=== PATIENT | female | born 1990 | race Caucasian/White ===

== ENCOUNTER 2022-08-27 10:12 | Day surgery (SDC) | payer OTHER, SELFPAY ==
[2022-08-27] VITALS (8 sets, daily range): BP systolic 103–111; BP diastolic 65–74; PULSE 81–89; RESP 16; TEMP 36.8–36.9; O2SAT 95–96; BMI 50.5
--- NOTE | ~2022-08-27 | FL_ITS ---
EXAMINATION: FLUOROSCOPY-GUIDED LUMBAR PUNCTURE CLINICAL INFORMATION: Migraine without aura. Obesity. COMPARISON: None TECHNIQUE: Following explaining fluoroscopy-guided lumbar puncture procedure, benefits and risk, a written consent was obtained. Patient was placed prone and low back area was cleaned and draped in usual sterile manner. 1% lidocaine was inserted at the skin of the left para midline region overlying the L3-L4 disc level. A 20-gauge 6-inch long needle was then inserted from the skin intrathecally. After observing CSF return following removal of stylet, patient was quickly placed in left lateral decubitus view and opening CSF pressure was obtained. Subsequently CSF was collected in 4 test tubes and sent to lab. The stylet was reintroduced and needle withdrawn. Complete hemostasis achieved at puncture site. Sterile dressing applied postprocedure. Patient tolerated procedure extremely well. FINDINGS: The vertebral heights and alignment is maintained normal. The needle is positioned at the L3-L4 disc level. Opening CSF pressure measured 14.5 cm of water. Approximately 10 mL of clear CSF fluid was collected in 4 test tubes and sent to lab. FLUOROSCOPY TIME: 0.3 minutes. DOSE AREA PRODUCT: 7.787 uGy-m2 (microgray-meter squared). FL/FL guided lumbar puncture LP IMPRESSION: Successful fluoroscopy-guided lumbar puncture performed without immediate complications.
[2022-08-27 10:57] LABS: MANUAL DIFF FLAG NO
[2022-08-27 10:58] LABS: Basophils Percent Auto 0.4 % (0-2); Eosinophils Absolute Auto 0.2 X10*3/uL (0.0-0.4); Eosinophils Percent Auto 1.8 % (0-4); Hematocrit 43.5 % (37.0-47.0); Hemoglobin 14.5 g/dl (12.0-16.0); Imm Gran Abs Auto 0.03 X10*3/uL (0.00-0.03); Imm Gran Pct Auto 0.3 % (0.0-0.4); Lymphocytes Absolute Auto 2.6 X10*3/uL (1.2-4.9); Lymphocytes Percent Auto 28.8 % (20-40); Mean Corpuscular HGB Conc 33.3 g/dl (31.0-35.0); Mean Corpuscular Hemoglobin 29.1 pg (27.0-33.0); Mean Corpuscular Volume 87.2 fL (80.0-98.0); Monocytes Absolute Auto 0.6 X10*3/uL (0.1-1.2); Monocytes Percent Auto 6.9 % (2-11); Neutrophils Absolute Auto 5.6 x10*3/uL (2.0-8.3); Neutrophils Percent Auto 61.8 % (45-73); Platelet Count 209 X10*3/uL (160-400); Red Blood Count 4.99 X10*6/uL (4.20-5.50); Red Cell Distribution Width 13.3 % (11.0-16.0); White Blood Count 9.1 X10*3/uL (4.8-10.8)
[2022-08-27 11:09] LABS: Prothrombin Time 11.6 SEC (10.0-13.1)
[2022-08-27 11:12] LABS: Partial Thromboplastin Time 36.8 SEC (26.0-36.4)
[2022-08-27 11:31] LABS: UPreg QC Valid YES; Urine Pregnancy NEGATIVE (NEGATIVE)
[2022-08-27 13:18] LABS: Glucose CSF 61 mg/dL; Total Protein CSF 24.5 mg/dL (15-45)
[2022-08-27 13:38] LABS: CSF Appearance Clear, Colorless; CSF Tube # 3
[2022-08-27 14:46] LABS: Appearance CSF CLEAR; CSF Tube # 4; Color CSF COLORLESS; Lymphocytes CSF 100 %; Red Blood Cell CSF 5 MM*3; White Blood Cell CSF 2 MM*3
== END 2022-08-27 15:34 | disposition home or self-care (01) ==
PROVIDERS: Nurse Practitioner Family; Visit Provider Radiology Diagnostic Radiology
PROC: 009U3ZZ Drainage of Spinal Canal, Percutaneous Approach (ICD-10-PCS; CPT 62270; principal; 2022-08-27 11:00)
DX: G43.009 Migraine without aura, not intractable, without status migrainosus (principal); R93.0 Abnormal findings on diagnostic imaging of skull and head, not elsewhere classified; E66.01 Morbid (severe) obesity due to excess calories; Z68.43 Body mass index [BMI] 50.0-59.9, adult; Z79.899 Other long term (current) drug therapy
CPT/HCPCS: 36415; 62328; 81025; 82945; 84157; 85025; 85610; 85730; 87015; 87070; 87205; 89051

== ENCOUNTER → 2022-12-11 09:04 | Outpatient (BNVA) | payer OTHER, SELFPAY | PROVIDERS: Visit Provider Nurse Practitioner Family ==

== ENCOUNTER 2023-02-26 09:28 | Outpatient (AMB) | payer OTHER, SELFPAY ==
--- NOTE | 2023-02-26 09:52 | MHC.OFFVIS ---
Intake Vital Signs 02/26/23 09:55 Weight 298 lb BP 126/56 L Blood Pressure Location Lt brachial Position Sitting Pulse 78 Pulse Source Pulse Oximeter Pulse Oximetry (%) 95 Oxygen Delivery Method Room Air Intake Visit Reasons: Botox-CONFIRMED Intake Note: Botox Injection Director Of Social Services Required: No Allergies No Known Allergies Allergy (Verified 02/26/23 09:53) Medication List - Last Reconciled 02/26/23 by Merna Tejeda MD escitalopram oxalate 20 mg PO DAILY indomethacin 25 mg PO TID PRN 30 days loratadine (Claritin Liqui-Gel) 10 mg PO DAILY PRN omeprazole 20 mg PO DAILY onabotulinumtoxinA (Botox) 200 units IM ONCE 12 weeks riboflavin (vitamin B2) 400 mg PO DAILY 30 days zolmitriptan take 1 tab at onset of headache; if no relief, may repeat 1 tab after at least 2 hrs; max = 2 tabs/24 hrs PO 30 days HPI HPI Comments History of Present Illness Details ? 32y/o female comes for treatment of migraines with botox.This is her first treatment and she has about 16-20 headache days a month.She takes care of her children at home and yetserday her headaches were severe that her had to leave work to care for children. ??? Most frequent reported adverse reactions following injection of botox for chronic migraine include neck pain (9%), headache(5%), eyelid ptosis(4%), migraine(4%), muscular weakness(4%), musculuskeletal stiffness(4%), bronchitis(3%), injection site pain (3%), musculoskeletal pain(3%), myalgia(3%), facial paresis(2%), HTN(2%) and muscle spasms(2%) were discussed in detail. ??? Botulinum toxin typeA 200units Lot no [id number] expiration Sep 2025 was diluted with 4 cc of normal saline . ??? Muscles injected- ??? Frontalis 4 sites ??? Procerus 1 site ??? Outside Sales Manager- 2 sites ??? Temporalis- 8 sites ??? Occipitalis- 6 sites ??? Cervical paraspinals- 4 sites ??? Trapezius- 6 sites- 10 units each ??? 5 units each in 31 site ??? Total use- 185units ??? Discarded-15units [facility] Medical History (Updated 02/26/23 @ 10:14 by Merna Tejeda MD) Chronic migraine without aura Family History Father Graves disease Mother Hypertension Alcohol abuse Cirrhosis Son ADHD Social History Alcohol intake: current Alcohol intake frequency: holidays/special occasions only Patient Tobacco Use Status: Never used Tobacco Physical Exam Const General: cooperative and no acute distress Orientation/consciousness: patient oriented x3 HEENT Head: Yes normocephalic Resp Effort & Inspection: normal respiratory effort and able to speak in complete sentences Neuro General: patient oriented x3, gait normal and CN's II-XI intact bilaterally Cognition (Neuro): normal cognition Motor exam (neuro): 5/5 motor strength present throughout Office Procedures Botulinum toxin Injection 66949 - Migraine Procedure code (CPT) selection complete Office Meds onabotulinumtoxinA Performing Provider: Merna Tejeda MD Administered by: Merna Tejeda MD on 02/26/23 10:19 Dose Route Admin Location Lot Number Expiration Date [employer] Outsole 185 unit subcut [id number] 09/05/25 9815-5536-61 ALLERGAN/BOTOX Comments: see HPI Assessment & Plan Assessment & Plan (1) Chronic migraine without aura: Code(s): G43.709 - Chronic migraine without aura, not intractable, without status migrainosus Plan Patient tolerated the procedure well she will call with any side effects Orders: Orders AMB Botulinum toxin Injection Today G43.709 - Chronic migraine without aura, not intractable, without status migrainosus Medications: Refilled zolmitriptan take 1 tab at onset of headache; if no relief, may repeat 1 tab after at least 2 hrs; max = 2 tabs/24 hrs PO 12 tabs 3RF 30 days Coding Level of Care Code Est Pt Level 1 (11842) Diagnoses Chronic migraine without aura G43.709 CPT Codes Botox Injection - Botox 3: 12249 - Migraine ([id number])
[2023-02-26 09:55] VITALS: BP 126/56; PULSE 78; O2SAT 95
== END 2023-02-26 10:11 | disposition home or self-care (01) ==
PROVIDERS: Visit Provider Psychiatry & Neurology Neurology
DX: G43.709 Chronic migraine without aura, not intractable, without status migrainosus (principal)
CPT/HCPCS: 64615; 99211

== ENCOUNTER → 2023-02-26 09:28 | Outpatient (BNVA) | payer OTHER, SELFPAY | PROVIDERS: Visit Provider Psychiatry & Neurology Neurology | DX: G43.709 Chronic migraine without aura, not intractable, without status migrainosus (principal) | CPT/HCPCS: 64615; J0585 ==

== ENCOUNTER 2023-05-29 09:32 | Outpatient (AMB) | payer OTHER, SELFPAY ==
[2023-05-29 09:30] VITALS: BP 126/80; PULSE 93; RESP 17; O2SAT 96; BMI 53.7
--- NOTE | 2023-05-29 09:30 | MHC.OFFVIS ---
Intake Vital Signs 05/29/23 09:30 Height 5 ft 3 in Weight 303 lb 6 oz BMI 53.7 BP 126/80 Blood Pressure Location Lt brachial Position Sitting Respiration 17 Pulse 93 Pulse Source Pulse Oximeter Pulse Oximetry (%) 96 Oxygen Delivery Method Room Air Intake Visit Reasons: Botox-confirmed Intake Note: Pt presents to office for Botox injections. Allergies No Known Allergies Allergy (Verified 05/29/23 09:30) Medication List - Last Reconciled 05/29/23 by Merna Tejeda MD escitalopram oxalate 20 mg PO DAILY indomethacin 25 mg PO TID PRN 30 days loratadine (Claritin Liqui-Gel) 10 mg PO DAILY PRN omeprazole 20 mg PO DAILY onabotulinumtoxinA (Botox) 200 units IM ONCE 12 weeks riboflavin (vitamin B2) 400 mg PO DAILY 30 days zolmitriptan take 1 tab at onset of headache; if no relief, may repeat 1 tab after at least 2 hrs; max = 2 tabs/24 hrs PO 30 days HPI HPI Comments History of Present Illness Details ? 33y/o female comes for treatment of migraines with botox.This is her first treatment and she has about 16-20 headache days a month.She takes care of her children at home and yetserday her headaches were severe that her had to leave work to care for children. ??? Most frequent reported adverse reactions following injection of botox for chronic migraine include neck pain (9%), headache(5%), eyelid ptosis(4%), migraine(4%), muscular weakness(4%), musculuskeletal stiffness(4%), bronchitis(3%), injection site pain (3%), musculoskeletal pain(3%), myalgia(3%), facial paresis(2%), HTN(2%) and muscle spasms(2%) were discussed in detail. ??? Botulinum toxin typeA 200units Lot no [id number] expiration Sep 2025 was diluted with 4 cc of normal saline . ??? Muscles injected- ??? Frontalis 4 sites ??? Procerus 1 site ??? Top Cager- 2 sites ??? Temporalis- 8 sites ??? Occipitalis- 6 sites ??? Cervical paraspinals- 4 sites ??? Trapezius- 6 sites- 10 units each ??? 5 units each in 31 site ??? Total use- 185units ??? Discarded-15units Patient also reports frequent arousals, snoring, hyperomnia PFSH Medical History (Updated 05/29/23 @ 10:30 by Merna Tejeda MD) Hypersomnia Snoring Chronic migraine without aura Family History Father Graves disease Mother Hypertension Alcohol abuse Cirrhosis Son ADHD Social History Alcohol intake: current Alcohol intake frequency: holidays/special occasions only Patient Tobacco Use Status: Never used Tobacco Physical Exam Vital Signs: Last Vital Signs Pulse 93 05/29/23 09:30 Resp 17 05/29/23 09:30 BP 126/80 05/29/23 09:30 Pulse Ox 96 05/29/23 09:30 Oxygen Delivery Method Room Air 05/29/23 09:30 BMI result Body Mass Index 53.7 Const General: cooperative and no acute distress Orientation/consciousness: patient oriented x3 HEENT Head: Yes normocephalic Resp Effort & Inspection: normal respiratory effort and able to speak in complete sentences Neuro General: patient oriented x3, gait normal and CN's II-XI intact bilaterally Cognition (Neuro): normal cognition Motor exam (neuro): 5/5 motor strength present throughout Office Procedures Botulinum toxin Injection 15904 - Migraine Procedure code (CPT) selection complete Office Meds onabotulinumtoxinA 200 unit solution for injection Performing Provider: Merna Tejeda MD Performing Location: [facility] [place] [facility] Administered by: Merna Tejeda MD on 05/29/23 10:38 Dose Route Admin Location Dispensed Lot Number Expiration Date [facility] [employer] Flatbed Driver 185 unit subcut 200 units [id number] 09/05/25 2639-3989-17 [employer]ERGAN/BOTOX Comments: see hpi Assessment & Plan Assessment & Plan (1) Chronic migraine without aura: Code(s): G43.709 - Chronic migraine without aura, not intractable, without status migrainosus Plan Patient tolerated the procedure well she will call with any side effects Orders: Orders RT home sleep study Today E66.01 - Morbid (severe) obesity due to excess calories, G47.10 - Hypersomnia, unspecified, R06.83 - Snoring AMB Botulinum toxin Injection Today G43.709 - Chronic migraine without aura, not intractable, without status migrainosus Coding Level of Care Code Est Pt Level 1 (71857) Diagnoses Chronic migraine without aura G43.709 CPT Codes Botox Injection - Botox 3: 24871 - Migraine ([id number])
== END 2023-05-29 10:31 | disposition home or self-care (01) ==
PROVIDERS: Visit Provider Psychiatry & Neurology Neurology
DX: G43.709 Chronic migraine without aura, not intractable, without status migrainosus (principal)
CPT/HCPCS: 64615

== ENCOUNTER → 2023-05-29 09:32 | Outpatient (BNVA) | payer OTHER, SELFPAY | PROVIDERS: Visit Provider Psychiatry & Neurology Neurology | DX: G43.709 Chronic migraine without aura, not intractable, without status migrainosus (principal) | CPT/HCPCS: 64615; 99211; J0585 ==

== ENCOUNTER 2023-09-02 09:04 | Outpatient (AMB) | payer BC, SELFPAY ==
--- NOTE | 2023-09-02 09:08 | A.OFFVIS_ITS ---
Intake Vital Signs 09/02/23 09:11 Height 5 ft 3 in Weight 296 lb BMI 52.4 BP 118/82 Blood Pressure Location Rt brachial Position Sitting Intake Visit Reasons: Follow ax-Ocncbjwxe-OUA Intake Note: Patient presents for follow up migraines. I've been doing botox I feel the [ast couple weeks a difference. Allergies No Known Allergies Allergy (Verified 09/02/23 09:10) HPI HPI Comments History of Present Illness Details 33-year-old female presents for f/u visi t for migraine. She is working w/ the weight management program at [facility]. She states she has a few more steps to go through, but then plans to have a gastric sleeve procedure. She was having a stabbing headache about once a month- feels like her last episode was in Sep. When this occurs- uses Indomethacin 25mg cap, may take w/ Ibuprofen and Zomig- which helps. Indomethacin may make her feel a little dizzy and off. She has started to notice a decrease in her migraine frequency since starting Botox. She has had 2 migraine days in the past 2 weeks. Zomig is very effective. Nurtec was ineffective for her severe migraine days. Headache not tried for her milder headache days. Baseline migraine w/o aura headache characteristics: Mild to severe Usually right-sided frontal pressure and throbbing pain a/w Photophobia, phonophobia, osmophobia, N/V, not right in space dizziness, brain fog. Post trauma of a hangover feeling. Current number of typical migraine days per month: 5 Average painfulness of these migraines: Severe- but respond quickly to Zomig w/wo Ibuprofen Current number of non-migraine headache days per month: 1-2 per week Average painfulness of these headaches: Mild- not responsive to Ibuprofen Current number of days of acute medication use per month: Previous number of migraine days per month prior to starting current preventive tx: Mild daily headache w/ mod-severe migraine 2 days per week. [facility] Medical History (Updated 05/29/23 @ 10:30 by Merna Tejeda MD) Hypersomnia Snoring Chronic migraine without aura Family History Father Graves disease Mother Hypertension Alcohol abuse Cirrhosis Son ADHD Social History (Reviewed 09/02/23 @ 09:11 by SHARI Kennedy Alcohol intake: current Alcohol intake frequency: holidays/special occasions only Patient Tobacco Use Status: Never used Tobacco Physical Exam Vital Signs: Last Vital Signs BP 118/82 09/02/23 09:11 BMI result Body Mass Index 52.4 Const General: cooperative and no acute distress Orientation/consciousness: patient oriented x3 Resp Effort & Inspection: normal respiratory effort and able to speak in complete sentences Neuro General: patient oriented x3 Cranial nerves: Yes CN's II-XII intact bilaterally Cognition (Neuro): normal cognition Psych Appearance: grossly normal Mental Status: mental status grossly normal Speech and movement: Normal speech and movement present Affect: normal affect Attitude: cooperative Assessment & Plan Assessment & Plan (1) Chronic migraine without aura: Code(s): G43.709 - Chronic migraine without aura, not intractable, without status migrainosus (2) Stabbing headache: Code(s): G44.85 - Primary stabbing headache (3) Obesity, morbid, BMI 50 or higher: Code(s): E66.01 - Morbid (severe) obesity due to excess calories Plan Discussed that patient may need to limit her NSAID use following gastric sleeve procedure. The centralized to trial her Nurtec 75 mg ODT as needed for mild headaches, stabbing headaches, and as adjunct to her Zomig for more severe migraine headaches. The patient still has some Nurtec at home. For now may continue:? For acute headache treatment: Continue Zomig 5mg po prn. Continue indomethacin 1-2 caps po tid prn stabbing headache. May adjunct w/ Ibuprofen 600mg q 6hrs or Naproxen 440mg q 12hrs prn. Previous acute migraine medication trials: Sumatriptan- ineffective. Rizatriptan- ineffective. Nurtec- ineffective for severe migraine. Acute migraine medication contraindications: None at this time. ? For headache prevention medication: Continue OTC Riboflavin 400mg qam Continue OTC Magnesium with goal of 400-500mg qhs Continue Botox q 12 weeks, as patient is having good clinical effect from use, may also be helping the stabbing headaches as well. Previous migraine prevention medication trials: Topiramate- lost effectiveness and caused paresthesias and cognitive difficulties. Propranolol ER 60mg qhs- caused lightheadedness. Zonisamide- for wt loss- topped- was ineffective for headache. Amitriptyline 10-20mg qhs- caused tiredness and lightheadedness. Migraine prevention medication contraindications: None at this time. ? Future considerations: HST to assess for sleep apnea. ? f/u in 6 months or sooner prn. Coding Level of Care Code Est Pt Level 4 (95423) Diagnoses Chronic migraine without aura G43.709 Stabbing headache G44.85 Obesity, morbid, BMI 50 or higher E66.01
[2023-09-02 09:11] VITALS: BP 118/82; BMI 52.4
== END 2023-09-02 10:09 | disposition home or self-care (01) ==
PROVIDERS: Visit Provider Nurse Practitioner Family
DX: G43.709 Chronic migraine without aura, not intractable, without status migrainosus (principal); G44.85 Primary stabbing headache; E66.01 Morbid (severe) obesity due to excess calories
CPT/HCPCS: 99214

== ENCOUNTER → 2023-09-02 09:04 | Outpatient (BNVA) | payer BC, SELFPAY | PROVIDERS: Visit Provider Nurse Practitioner Family ==

== ENCOUNTER → 2023-10-24 11:23 | Outpatient (REF) | payer BC, SELFPAY | LOC: HO.SL 11:23 | PROVIDERS: Visit Provider Psychiatry & Neurology Neurology | DX: G47.33 Obstructive sleep apnea (adult) (pediatric) (principal); R06.83 Snoring; E66.01 Morbid (severe) obesity due to excess calories | CPT/HCPCS: 95806 ==

== ENCOUNTER → 2023-10-24 12:49 | Outpatient (BNV) | payer BC, SELFPAY | PROVIDERS: Visit Provider Psychiatry & Neurology Neurology | DX: G47.33 Obstructive sleep apnea (adult) (pediatric) (principal) | CPT/HCPCS: 95806 ==

== ENCOUNTER → 2023-11-29 20:30 | Outpatient (REF) | payer BC, SELFPAY | LOC: HO.SL 20:30 | DX: G47.33 Obstructive sleep apnea (adult) (pediatric) (principal); E66.01 Morbid (severe) obesity due to excess calories | CPT/HCPCS: 95811 ==

== ENCOUNTER → 2023-11-30 05:37 | Outpatient (BNV) | payer BC, SELFPAY | PROVIDERS: Visit Provider Psychiatry & Neurology Neurology | DX: G47.33 Obstructive sleep apnea (adult) (pediatric) (principal) | CPT/HCPCS: 95811 ==

== ENCOUNTER 2023-12-02 09:03 | Outpatient (AMB) | payer BC, SELFPAY ==
[2023-12-02 09:10] VITALS: BP 142/88; PULSE 86; RESP 16; O2SAT 97; BMI 52.3
--- NOTE | 2023-12-02 09:10 | MHC.OFFVIS ---
Vital Signs 12/02/23 09:10 Height 5 ft 3 in Weight 295 lb BMI 52.3 BP 142/88 H Blood Pressure Location Rt brachial Position Sitting Respiration 16 Pulse 86 Pulse Source Pulse Oximeter Pulse Oximetry (%) 97 Intake Visit Reasons: Botox-CONF Intake Note: Pt presents to the office for Botox injections. Pretzel Twister Required: No Allergies No Known Allergies Allergy (Verified 12/02/23 09:10) Medication List - Last Reconciled 12/02/23 by Merna Tejeda MD escitalopram oxalate 20 mg PO DAILY indomethacin 25 mg PO TID PRN 30 days loratadine (Claritin Liqui-Gel) 10 mg PO DAILY PRN omeprazole 20 mg PO DAILY onabotulinumtoxinA (Botox) 200 units IM ONCE 12 weeks riboflavin (vitamin B2) 400 mg PO DAILY 30 days zolmitriptan take 1 tab at onset of headache; if no relief, may repeat 1 tab after at least 2 hrs; max = 2 tabs/24 hrs PO 30 days HPI Comments Details: ? 33y/o female comes for treatment of migraines with botox.This is her first treatment and she has about 16-20 headache days a month.She takes care of her children at home and yetserday her headaches were severe that her had to leave work to care for children. ??? Most frequent reported adverse reactions following injection of botox for chronic migraine include neck pain (9%), headache(5%), eyelid ptosis(4%), migraine(4%), muscular weakness(4%), musculuskeletal stiffness(4%), bronchitis(3%), injection site pain (3%), musculoskeletal pain(3%), myalgia(3%), facial paresis(2%), HTN(2%) and muscle spasms(2%) were discussed in detail. ??? Botulinum toxin typeA 200units Lot no [id number] expiration january2026 was diluted with 4 cc of normal saline . ??? Muscles injected- ??? Frontalis 4 sites ??? Procerus 1 site ??? Technical Sales Representatives- 2 sites ??? Temporalis- 8 sites ??? Occipitalis- 6 sites ??? Cervical paraspinals- 4 sites ??? Trapezius- 6 sites- 10 units each ??? 5 units each in 31 site ??? Total use- 185units ??? Discarded-15units [facility] Medical History Hypersomnia Snoring Chronic migraine without aura Family History Father Graves disease Mother Hypertension Alcohol abuse Cirrhosis Son ADHD Social History Alcohol intake: current Alcohol intake frequency: holidays/special occasions only Patient Tobacco Use Status: Never used Tobacco Physical Exam Vital Signs: Last Vital Signs Pulse 86 12/02/23 09:10 Resp 16 12/02/23 09:10 BP 142/88 H 12/02/23 09:10 Pulse Ox 97 12/02/23 09:10 BMI result Body Mass Index 52.3 Const General: cooperative and no acute distress Orientation/consciousness: patient oriented x3 Resp Effort & Inspection: normal respiratory effort and able to speak in complete sentences Neuro General: patient oriented x3 Cranial nerves: Yes CN's II-XII intact bilaterally Cognition (Neuro): normal cognition Psych Appearance: grossly normal Mental Status: mental status grossly normal Speech and movement: Normal speech and movement present Affect: normal affect Attitude: cooperative Office Procedures Botulinum toxin Injection 08683 - Migraine Procedure code (CPT) selection complete Office Meds onabotulinumtoxinA 200 unit solution for injection Performing Provider: Merna Tejeda MD Performing Location: [facility] [place] [facility] Administered by: Merna Tejeda MD on 12/02/23 09:37 Dose Route Admin Location Dispensed Lot Number Expiration Date [facility][NOTE 3] [employer] Ios Developer 185 unit subcut 200 units [id number] 01/03/26 7375-3016-07 ALLERGAN/BOTOX Comments: see HPI Assessment & Plan Assessment & Plan (1) Chronic migraine without aura: Code(s): G43.709 - Chronic migraine without aura, not intractable, without status migrainosus Category: Medical Plan Patient tolerated the procedure well she will call with any side effects Orders: Orders AMB Botulinum toxin Injection Today G43.709 - Chronic migraine without aura, not intractable, without status migrainosus Medications: New onabotulinumtoxinA 200 units subcut ONCE 1 ea 0RF migraine G43.709 - Chronic migraine without aura, not intractable, without status migrainosus Coding Level of Care Code Est Pt Level 1 (43045) Diagnoses Chronic migraine without aura G43.709 CPT Codes Botox Injection - Botox 3: 91079 - Migraine ([id number])
== END 2023-12-02 09:37 | disposition home or self-care (01) ==
PROVIDERS: Visit Provider Psychiatry & Neurology Neurology
DX: G43.709 Chronic migraine without aura, not intractable, without status migrainosus (principal)
CPT/HCPCS: 64615

== ENCOUNTER → 2023-12-02 09:03 | Outpatient (BNVA) | payer BC, SELFPAY | PROVIDERS: Visit Provider Psychiatry & Neurology Neurology | DX: G43.709 Chronic migraine without aura, not intractable, without status migrainosus (principal) | CPT/HCPCS: 64615; 99211; J0585 ==

== ENCOUNTER 2024-03-04 13:04 | Outpatient (AMB) | payer BC, SELFPAY ==
[2024-03-04 13:06] VITALS: BP 126/70; PULSE 82; RESP 16; O2SAT 97; BMI 52.3
--- NOTE | 2024-03-04 13:06 | MHC.OFFVIS ---
Vital Signs 03/04/24 13:06 Height 5 ft 3 in Weight 295 lb BMI 52.3 BP 126/70 Blood Pressure Location Rt brachial Position Sitting Respiration 16 Pulse 82 Pulse Source Pulse Oximeter Pulse Oximetry (%) 97 Oxygen Delivery Method Room Air Intake Visit Reasons: Botox - Confirmed Intake Note: Pt presents to the office for Botox injections for chronic migraines. Chief Clinical Officer Required: No Allergies No Known Allergies Allergy (Verified 03/04/24 13:06) Medication List - Last Reconciled 03/04/24 by Merna Tejeda MD escitalopram oxalate 20 mg PO DAILY indomethacin 25 mg PO TID PRN 30 days loratadine (Claritin Liqui-Gel) 10 mg PO DAILY PRN omeprazole 20 mg PO DAILY onabotulinumtoxinA (Botox) 200 units IM ONCE 12 weeks riboflavin (vitamin B2) 400 mg PO DAILY 30 days zolmitriptan take 1 tab at onset of headache; if no relief, may repeat 1 tab after at least 2 hrs; max = 2 tabs/24 hrs PO 30 days HPI Comments Details: ? 33y/o female comes for treatment of migraines with botox.This is her first treatment and she has about 16-20 headache days a month.She takes care of her children at home and yetserday her headaches were severe that her had to leave work to care for children. ??? Most frequent reported adverse reactions following injection of botox for chronic migraine include neck pain (9%), headache(5%), eyelid ptosis(4%), migraine(4%), muscular weakness(4%), musculuskeletal stiffness(4%), bronchitis(3%), injection site pain (3%), musculoskeletal pain(3%), myalgia(3%), facial paresis(2%), HTN(2%) and muscle spasms(2%) were discussed in detail. ??? Botulinum toxin typeA 200units Lot no [id number] expiration was diluted with 4 cc of normal saline . ??? Muscles injected- ??? Frontalis 4 sites ??? Procerus 1 site ??? Water/Wastewater Engineer- 2 sites ??? Temporalis- 8 sites ??? Occipitalis- 6 sites ??? Cervical paraspinals- 4 sites ??? Trapezius- 6 sites- 10 units each ??? 5 units each in 31 site ??? Total use- 185units ??? Discarded-15units [facility] Medical History (Updated 03/04/24 @ 13:27 by Merna Tejeda MD) Chronic migraine without aura, intractable, without status migrainosus Hypersomnia Snoring Chronic migraine without aura Family History Father Graves disease Mother Hypertension Alcohol abuse Cirrhosis Son ADHD Social History Alcohol intake: current Alcohol intake frequency: holidays/special occasions only Patient Tobacco Use Status: Never used Tobacco Physical Exam Vital Signs: Last Vital Signs Pulse 82 03/04/24 13:06 Resp 16 03/04/24 13:06 BP 126/70 03/04/24 13:06 Pulse Ox 97 03/04/24 13:06 Oxygen Delivery Method Room Air 03/04/24 13:06 BMI result Body Mass Index 52.3 Const General: cooperative and no acute distress Orientation/consciousness: patient oriented x3 Resp Effort & Inspection: normal respiratory effort and able to speak in complete sentences Neuro General: patient oriented x3 Cranial nerves: Yes CN's II-XII intact bilaterally Cognition (Neuro): normal cognition Psych Appearance: grossly normal Mental Status: mental status grossly normal Speech and movement: Normal speech and movement present Affect: normal affect Attitude: cooperative Office Procedures Botulinum toxin Injection 71491 - Migraine Procedure code (CPT) selection complete Office Meds onabotulinumtoxinA 200 unit solution for injection Performing Provider: Merna Tejeda MD Performing Location: [facility] [place] [facility] Administered by: Merna Tejeda MD on 03/04/24 13:29 Dose Route Admin Location Dispensed Lot Number Expiration Date [facility] [employer] 185 unit subcut 200 units [id number] 06/05/26 1276-5110-78 ALLERGAN/BOTOX Assessment & Plan Assessment & Plan (1) Chronic migraine without aura: Code(s): G43.709 - Chronic migraine without aura, not intractable, without status migrainosus Category: Medical (2) Chronic migraine without aura, intractable, without status migrainosus: Code(s): G43.719 - Chronic migraine without aura, intractable, without status migrainosus Category: Medical Plan Patient tolerated the procedure well she will call with any side effects Orders: Orders AMB Botulinum toxin Injection Today G43.719 - Chronic migraine without aura, intractable, without status migrainosus Medications: New onabotulinumtoxinA 200 units subcut ONCE 1 ea 0RF migraine G43.719 - Chronic migraine without aura, intractable, without status migrainosus Coding Level of Care Code Est Pt Level 1 (22118) Diagnoses Chronic migraine without aura G43.709 Chronic migraine without aura, intractable, without status migrainosus G43.719 CPT Codes Botox Injection - Botox 3: 57481 - Migraine ([id number])
== END 2024-03-04 13:35 | disposition home or self-care (01) ==
PROVIDERS: Visit Provider Psychiatry & Neurology Neurology
DX: G43.719 Chronic migraine without aura, intractable, without status migrainosus (principal)
CPT/HCPCS: 64615

== ENCOUNTER → 2024-03-04 13:04 | Outpatient (BNVA) | payer BC, SELFPAY | PROVIDERS: Visit Provider Psychiatry & Neurology Neurology | DX: G43.709 Chronic migraine without aura, not intractable, without status migrainosus (principal); G43.719 Chronic migraine without aura, intractable, without status migrainosus | CPT/HCPCS: 64615; 99211; J0585 ==

== ENCOUNTER 2024-06-08 11:27 | Outpatient (AMB) | payer BC, SELFPAY ==
--- NOTE | 2024-06-08 11:46 | MHC.OFFVIS ---
Vital Signs 06/08/24 11:47 Height 5 ft 3 in Weight 295 lb BMI 52.3 Intake Visit Reasons: Botox Intake Note: Patient presents for botox injection Allergies No Known Allergies Allergy (Verified 06/08/24 11:48) Medication List - Last Reconciled 06/08/24 by Merna Tejeda MD escitalopram oxalate 20 mg PO DAILY indomethacin 25 mg PO TID PRN 30 days loratadine (Claritin Liqui-Gel) 10 mg PO DAILY PRN omeprazole 20 mg PO DAILY onabotulinumtoxinA (Botox) 200 units IM ONCE 12 weeks riboflavin (vitamin B2) 400 mg PO DAILY 30 days zolmitriptan take 1 tab at onset of headache; if no relief, may repeat 1 tab after at least 2 hrs; max = 2 tabs/24 hrs PO 30 days HPI Comments Details: ? 34y/o female comes for treatment of migraines with botox.This is her first treatment and she has about 16-20 headache days a month.She takes care of her children at home and yetserday her headaches were severe that her had to leave work to care for children. ??? Most frequent reported adverse reactions following injection of botox for chronic migraine include neck pain (9%), headache(5%), eyelid ptosis(4%), migraine(4%), muscular weakness(4%), musculuskeletal stiffness(4%), bronchitis(3%), injection site pain (3%), musculoskeletal pain(3%), myalgia(3%), facial paresis(2%), HTN(2%) and muscle spasms(2%) were discussed in detail. ??? Botulinum toxin typeA 200units Lot no [id number] expiration October 2026 was diluted with 4 cc of normal saline . ??? Muscles injected- ??? Frontalis 4 sites ??? Procerus 1 site ??? Jet Aircraft Servicer- 2 sites ??? Temporalis- 8 sites ??? Occipitalis- 6 sites ??? Cervical paraspinals- 4 sites ??? Trapezius- 6 sites- 10 units each ??? 5 units each in 31 site ??? Total use- 185units ??? Discarded-15units [facility] Medical History Chronic migraine without aura, intractable, without status migrainosus Hypersomnia Snoring Chronic migraine without aura Family History Father Graves disease Mother Hypertension Alcohol abuse Cirrhosis Son ADHD Social History Alcohol intake: current Alcohol intake frequency: holidays/special occasions only Patient Tobacco Use Status: Never used Tobacco Physical Exam Vital Signs: BMI result Body Mass Index 52.3 Const General: cooperative and no acute distress Orientation/consciousness: patient oriented x3 Resp Effort & Inspection: normal respiratory effort and able to speak in complete sentences Neuro General: patient oriented x3 Cranial nerves: Yes CN's II-XII intact bilaterally Cognition (Neuro): normal cognition Psych Appearance: grossly normal Mental Status: mental status grossly normal Speech and movement: Normal speech and movement present Affect: normal affect Attitude: cooperative Office Procedures Botulinum toxin Injection 88189 - Migraine Procedure code (CPT) selection complete Office Meds onabotulinumtoxinA 200 unit solution for injection Performing Provider: Merna Tejeda MD Performing Location: [facility] [place] [facility] Administered by: Merna Tejeda MD on 06/08/24 12:20 Dose Route Admin Location Dispensed Lot Number Expiration Date [facility] [employer] 185 unit subcut 200 units [id number] 10/04/23 0422-5781-80 [employer]OTOX Comments: see HPI Assessment & Plan Assessment & Plan (1) Chronic migraine without aura: Code(s): G43.709 - Chronic migraine without aura, not intractable, without status migrainosus Category: Medical Qualifiers: Status migrainosus presence: without status migrainosus Intractability: intractable Qualified Code(s): G43.719 - Chronic migraine without aura, intractable, without status migrainosus (2) Chronic migraine without aura, intractable, without status migrainosus: Code(s): G43.719 - Chronic migraine without aura, intractable, without status migrainosus Category: Medical Plan Patient tolerated the procedure well she will call with any side effects Orders: Orders AMB Botulinum toxin Injection Today G43.719 - Chronic migraine without aura, intractable, without status migrainosus Medications: New onabotulinumtoxinA 200 units subcut ONCE 1 ea 0RF migraine G43.719 - Chronic migraine without aura, intractable, without status migrainosus Coding Level of Care Code Est Pt Level 1 (61472) Diagnoses Intractable chronic migraine without aura and without status migrainosus G43.719 Status migrainosus presence: without status migrainosus Intractability: intractable Chronic migraine without aura, intractable, without status migrainosus G43.719 CPT Codes Botox Injection - Botox 3: 85316 - Migraine ([id number])
[2024-06-08 11:47] VITALS: BMI 52.3
== END 2024-06-08 12:11 | disposition home or self-care (01) ==
LOC: HO.HSMS 11:28
PROVIDERS: Visit Provider Psychiatry & Neurology Neurology
DX: G43.719 Chronic migraine without aura, intractable, without status migrainosus (principal)
CPT/HCPCS: 64615

== ENCOUNTER → 2024-06-08 11:27 | Outpatient (BNVA) | payer BC, SELFPAY | PROVIDERS: Visit Provider Psychiatry & Neurology Neurology | DX: G43.719 Chronic migraine without aura, intractable, without status migrainosus (principal) | CPT/HCPCS: 64615; 99211; J0585 ==